=== PATIENT | female | born 1985 | race Caucasian/White ===

== ENCOUNTER 2019-02-02 19:18 | Emergency (ER) | payer OTHER, SELFPAY ==
[2019-02-02 19:52] VITALS: BP 121/75; PULSE 85; RESP 16; TEMP 37.1; O2SAT 99; BMI 30.6
--- NOTE | 2019-02-02 19:55 | DI.RAD.S_ITS ---
PROCEDURE: XR FOREARM RT 2V INDICATIONS: RIGHT ARM PAIN AND BRUISING TECHNIQUE: 2 views of the forearm were acquired. COMPARISON: None. FINDINGS: Bones: No fractures or dislocations. No suspicious bony lesions. Soft tissues: No suspicious soft tissue calcifications or masses. IMPRESSION: No trauma found. Dictated by: Riky Garcia M.D. on 02/02/2019 at 21:17 Approved by: Riky Garcia M.D. on 02/02/2019 at 21:18
--- NOTE | 2019-02-02 20:31 | ED.UPPEXIN ---
HPI - Extremity Injury (Upper) General Chief Complaint: Extremity Injury, Upper Stated Complaint: fall,injured right arm,swollen and numbness Time Seen by Provider: 02/02/19 19:30 Source: patient Mode of arrival: Ambulatory Limitations: no limitations History of Present Illness HPI narrative: 33-year-old female nonsmoker with noncontributory medical history presents with a chief complaint of mechanical fall onto an outstretched right forearm which she ran her arm into the corner of a wall. Since then she has had some swelling and pain overlying the dorsum of her forearm. She denies any wrist, elbow or shoulder pain. She is otherwise well and free of complaint. She denies any other injury. She does complain of some tingling running both proximally and distal from the injury MD complaint: injury to: right Onset (ago): day(s) Other injuries: none Handedness: right Place: home Severity: moderate Relieving factors: rest Exacerbating factors: movement of extremity Context: fall and direct blow Associated symptoms: denies other symptoms Related Data Allergies Allergy/AdvReac Type Severity Reaction Status Date / Time No Known Drug Allergies Allergy Verified 02/02/19 19:51 Review of Systems Constitutional Constitutional: Denies chills, Denies fatigue, Denies fever(s), Denies frequent falls, Denies lethargy and Denies weakness Eyes Eyes: Denies change in vision, Denies eye discharge, Denies irritation and Denies loss of vision ENT Ears, Nose, Mouth, and Throat: Denies change in voice, Denies dizziness, Denies neck pain, Denies sore throat and Denies throat swelling Cardiovascular Cardiovascular: Denies chest pain, Denies irregular heart rhythm, Denies lightheadedness, Denies palpitations, Denies dyspnea, Denies dyspnea on exertion and Denies orthopnea Respiratory Respiratory: Denies cough, Denies dyspnea, Denies dyspnea on exertion and Denies wheezing Gastrointestinal Gastrointestinal: Denies abdominal pain, Denies change in bowel habits, Denies diarrhea, Denies nausea and Denies vomiting Genitourinary Genitourinary: Denies hematuria, Denies flank pain, Denies urinary incontinence and Denies urinary urgency Musculoskeletal Musculoskeletal: Denies back pain, Denies muscle weakness, Denies neck pain, Reports numbness and Denies tingling Integumentary/Breasts Skin/Breast: Denies pruritus, Denies erythema, Denies rash and Denies wounds Neurologic Neurologic: Denies behavioral changes, Denies confusion, Denies dizziness, Denies frequent falls, Denies loss of vision, Reports numbness, Denies tingling and Denies weakness Psychiatric Psychiatric: Denies anxiety, Denies behavioral changes, Denies confusion, Denies depression, Denies homicidal ideation and Denies suicidal ideation Endocrine Endocrine: Denies fatigue, Denies flushing and Denies palpitations Hematologic/Lymphatic Hematologic/Lymphatic: Denies easy bruising Allergic/Immunologic Allergic/Immunologic: Denies urticaria, Denies throat swelling and Denies wheezing Patient History Social History Smoking Status: Current some day smoker alcohol intake frequency: a few times a month Substance Use Type: marijuana Exam Narrative Exam Narrative: GEN: AOx3 and in mild distress EYES: Pupils are equal, round, and reactive to light and accommodation. Extraoccular muscles are intact bilaterally. There is no subconjunctival hemorrhage or exudate. CHEST: Lungs are clear to auscultation bilaterally and free of wheezes, rales, or rhonchi. Heart rate is regular rhythm, there are no murmurs, clicks, rubs, or gallops. There is no chest wall tenderness. ABD: Abdomen is soft and nontender. There is no guarding or rebound. Bowel sounds are normal in all 4 quadrants. There is no mass or organomegaly. EXT: 3 x 2 cm aging hematoma on the dorsal surface of right forearm midshaft. Full range of motion and strength of fingers, wrist and elbow. SKIN: Warm, pink, and dry. No erythema or rash Initial Vital Signs Initial Vital Signs: Vital Signs Temperature 98.7 F 02/02/19 19:52 Pulse Rate 85 02/02/19 19:52 Respiratory Rate 16 02/02/19 19:52 Blood Pressure 121/75 02/02/19 19:52 Pulse Oximetry 99 02/02/19 19:52 Procedures Orthopedic Splinting/Casting Injury #1: Side: right Upper Extremity Injury Location: forearm Upper Extremity Immobilizer: sling/shoulder immobilizer Post splinting neuro exam: intact Post splinting vascular exam: intact Placed by: Nursing Course Orders Ordered: ED Orders 02/02/19 19:55 XR forearm RT 2V Stat Vital Signs Vital signs: Vital Signs - 8 hr 02/02/19 21:32 Pulse Rate 81 Respiratory Rate 15 Blood Pressure 108/76 Pulse Oximetry 97 Discharge Plan Departure Patient Disposition: Home Clinical Impression: Contusion of forearm, right Qualifiers: Encounter type: initial encounter Qualified Code(s): S50.11XA - Contusion of right forearm, initial encounter Discharge Date/Time: 02/02/19 21:33 Instructions: DI for Contusion Activity Restrictions/Additional Instructions: *You have been diagnosed with [contusion right forearm] *What to do: *Take medications as directed: Tylenol or Motrin for pain *Follow up with your primary care provider in 2-3 days, call for an appointment. Let them know you were seen in the Emergency Department and that we ask that you be seen in follow up *Return to ER if you should have any new, worsening or concerning symptoms
[2019-02-02 21:32] VITALS: BP 108/76; PULSE 81; RESP 15; O2SAT 97
== END 2019-02-02 21:33 | disposition home or self-care (01) ==
PROVIDERS: Emergency Provider Emergency Medicine
DX: S50.11XA Contusion of right forearm, initial encounter (principal); W18.39XA Other fall on same level, initial encounter
CPT/HCPCS: 73090; 99282; 99283

== ENCOUNTER → 2020-02-06 12:13 | Outpatient (CLI) | payer OTHER, SELFPAY ==
--- NOTE | 2020-02-06 | DI.MRI.S_ITS ---
PROCEDURE: MR LUMBAR SPINE WO CON INDICATIONS: SPINAL STENOSIS TECHNIQUE: Noncontrast sagittal T1 spin echo and T2 fast echo, sagittal STIR, axial T1 and T2 fast spin echo through the lumbar spine. In cases with scoliosis, additional coronal T2 fast spin echo may be performed. COMPARISON: None. FINDINGS: Image quality: Excellent. Alignment and Curvature: Normal lumbar vertebral body height and alignment. Bone Marrow: There is periarticular bone marrow edema and soft tissue edema in association with facet osteoarthropathy at L4-L5 and L5-S1, right greater than left. No other suspicious focal marrow signal abnormality or bone marrow edema. Spinal Cord: Normal position and appearance of the conus. Regional Soft Tissues: No prevertebral or paraspinous soft tissue signal abnormality. The included unenhanced retroperitoneal visceral structures, partially visualized, demonstrate no acute abnormality. L1-L2: No significant degenerative changes, spinal canal stenosis, neural foraminal stenosis. L2-L3: No significant degenerative changes, spinal canal stenosis, or neural foraminal stenosis. L3-L4: Mild disc desiccation and height loss. Trace disc bulge minimally flattens the ventral thecal sac. No mass effect upon the traversing L4 nerve roots. Foraminal components of the disc bulge are present without neural foraminal stenosis. Mild facet hypertrophy. L4-L5: Disc desiccation and disc height loss with diffuse disc bulge and a superimposed broad-based posterior disc protrusion. Disc material flattens and indents the ventral thecal sac. There is displacement of the descending L5 nerve roots within both subarticular zones, right greater than left. The right L5 nerve roots are interposed between disc and facet material within the right subarticular zone (series 5, image 21). Foraminal components of the disc bulge combine with facet hypertrophy to produce mild-moderate bilateral neural foraminal stenosis. L5-S1: Trace disc bulge. Disc material abuts but does not obviously displace the descending S1 nerve roots. No neural foraminal stenosis. IMPRESSION: Possible impingement of the right L5 nerve roots within the right subarticular zone due to combination of disc bulge with protrusion and facet hypertrophy at L4-L5. Facet osteoarthropathy at L3-L4, L4-L5, and L5-S1 with associated periarticular marrow and soft tissue edema. This is a potential source of nonradicular axial back pain. Dictated by: Kyle Anguiano M.D. on 02/06/2020 at 13:25 Approved by: Kyle Anguiano M.D. on 02/06/2020 at 13:39
== END ==
PROVIDERS: PCP Student in an Organized Health Care Education/Training Program; Referring Provider Student in an Organized Health Care Education/Training Program; Visit Provider Physical Medicine & Rehabilitation Pain Medicine
DX: M48.061 Spinal stenosis, lumbar region without neurogenic claudication (principal); M51.26 Other intervertebral disc displacement, lumbar region; M47.816 Spondylosis without myelopathy or radiculopathy, lumbar region; M47.817 Spondylosis without myelopathy or radiculopathy, lumbosacral region
CPT/HCPCS: 72148

== ENCOUNTER 2024-05-22 21:17 | Emergency (ER) | payer OTHER, SELFPAY ==
[2024-05-22] VITALS (10 sets, daily range): BP systolic 100–124; BP diastolic 61–84; PULSE 70–85; RESP 14–23; TEMP 36.9; O2SAT 95–100; BMI 29.0
--- NOTE | 2024-05-22 21:23 | EKG_ITS ---
[facility] [address], [place] [address] Test Date: 2024-05-22 Pat Name: Ling Petty Department: [facility] Room: Gender: Female Facing Grinder: : 1985 Requested By: Order Number: [id number] Reading MD: Glen Lynn MD Measurements Intervals [place] Rate: 77 P: 25 GA: 146 QRS: 6 QRSD: 110 T: 26 QT: 378 QTc: 427 Interpretive Statements Normal sinus rhythm Electronically Signed On 05-23-2024 7:49:33 PDT by Glen Lynn MD
--- NOTE | 2024-05-22 21:32 | ED_ITS ---
HPI - Overdose General Chief Complaint: Toxicology Problem Stated Complaint: OD Time Seen by Provider: 05/22/24 21:23 History of Present Illness HPI Narrative: 39-year-old female with a past medical history of hypertension presents to the emergency department with EMS for evaluation of accidental propranolol ingestion. State this is happened at 8:15 a.m., states she accidentally took the bottle that contained a proximally 20 pills of 20 mg of propranolol without intent to kill herself. She states that she normally takes propranolol for her anxiety/depression, she states that she was driving was reaching in her backpack to take her nightly medications but actually they drank all of her propranolol medication. At time of evaluation patient not complaining of any symptoms. Denies suicidal or homicidal ideations. Related Data Allergies Allergy/AdvReac Type Severity Reaction Status Date / Time No Known Drug Allergies Allergy Verified 02/02/19 19:51 Review of Systems Review of Systems Narrative: General: Positive accidental beta-agata ingestion for dose Denies fever, chills, weight loss HEENT: Denies headache, eye drainage, eye irritation, head trauma, sore throat, voice change Cardiovascular: Denies any chest pain, palpitations, tachycardia Respiratory: Denies any shortness of breath, cough, wheeze, stridor GI/: Denies any abdominal pain, nausea, vomiting, diarrhea, bright red blood per rectum, melanotic stools, urinary frequency, urinary retention, dysuria, hematuria MSK: Denies any joint pain, muscle pains, swelling Skin: Denies any rashes, lesions, discoloration Neuro: Denies any headache, lightheadedness, dizziness, fainting, weakness Psych: Denies SI/HI Patient History Social History Smoking Status: Current some day smoker Smoking Status: Current some day smoker alcohol intake frequency: a few times a month Exam Narrative Exam Narrative: General: Cooperative, comfortable, well-developed, not in acute distress HEENT: Normocephalic, atraumatic, PERRLA, normal sclera, eyelids normal, Neck: Active full range of motion, atraumatic Chest: Normal to inspection, negative crepitus, no overlying erythema ecchymosis Respiratory: Normal respiratory effort, not in acute respiratory distress, clear to auscultation bilaterally negative cough, wheeze, tachypnea, rhonchi, rales Cardiology: Regular rate rhythm negative gallop, murmur, rubs GI/: Normal to inspection, soft, nonrigid, no tenderness to palpation, exam deferred MSK: Full range of active range of motion of all 4 extremities, atraumatic Skin: No rashes lesions noted Neuro: Alert awake oriented x3, moves all 4 extremities spontaneously, cranial nerves intact, able to answer all questions appropriately follows commands appropriately Psych: Cooperative, negative suicidal or homicidal ideations Initial Vital Signs Initial Vital Signs: Vital Signs Temperature 98.4 F 05/22/24 21:20 Pulse Rate 76 05/22/24 21:20 Respiratory Rate 16 05/22/24 21:20 Blood Pressure 124/84 05/22/24 21:20 Pulse Oximetry 97 05/22/24 21:20 Oxygen Delivery Method Room Air 05/22/24 21:20 Course Orders Ordered: ED Orders 05/22/24 21:23 Acetaminophen Stat CMP [Comprehensive Metabolic Panel] Stat Ethanol (ETOH) Stat HCG Quantitative /Beta subunit Stat Lipase Stat MAG [Magnesium] Stat Salicylate Stat EKG-12 Lead Stat 05/22/24 23:15 Urine Drug Screen, Rapid Stat 05/23/24 01:28 EKG-12 Lead Stat 05/23/24 04:55 EKG-12 Lead Stat Discontinued Medications Acetaminophen (Acetaminophen 325 Mg Tablet) 650 mg PO NOW ONE Stop: 05/23/24 02:47 Last Admin: 05/23/24 02:56 Dose: 650 mg Documented By: TAMMY Sodium Chloride (Normal Saline 0.9%) 1,000 mls @ 1,000 mls/hr IV BOLUS ONE Stop: 05/22/24 22:58 Last Infusion: 05/22/24 23:17 Dose: Infused Documented By: Admin: 05/22/24 22:06 Dose: 1,000 mls/hr Documented By: KRISHNA Ondansetron HCl (Ondansetron 4 Mg/2 Ml Inj) 4 mg IV NOW ONE Stop: 05/22/24 21:31 Last Admin: 05/22/24 21:36 Dose: 4 mg Documented By: TAMMY Vital Signs Vital signs: Vital Signs - 8 hr 05/22/24 21:20 05/22/24 21:20 05/22/24 21:30 Temperature 98.4 F Pulse Rate 76 80 85 Respiratory Rate 16 22 Blood Pressure 124/84 Pulse Oximetry 97 98 100 Oxygen Delivery Method Room Air 05/22/24 21:30 05/22/24 22:00 05/22/24 22:00 Temperature Pulse Rate 72 Respiratory Rate 18 Blood Pressure 117/69 101/69 Pulse Oximetry 99 Oxygen Delivery Method 05/22/24 22:30 05/22/24 22:30 05/22/24 22:40 Temperature Pulse Rate 70 72 Respiratory Rate 20 Blood Pressure 100/67 Pulse Oximetry 96 99 Oxygen Delivery Method Room Air 05/22/24 22:40 05/22/24 23:00 05/22/24 23:00 Temperature Pulse Rate 70 Respiratory Rate 23 Blood Pressure 107/69 100/64 Pulse Oximetry 99 Oxygen Delivery Method 05/22/24 23:15 05/22/24 23:15 05/22/24 23:20 Temperature Pulse Rate 80 73 Respiratory Rate 14 15 Blood Pressure 106/61 Pulse Oximetry 97 96 Oxygen Delivery Method 05/22/24 23:20 05/22/24 23:30 05/22/24 23:40 Temperature Pulse Rate 74 74 Respiratory Rate 18 19 Blood Pressure 107/73 Pulse Oximetry 95 97 Oxygen Delivery Method Room Air Room Air 05/22/24 23:40 05/23/24 00:00 05/23/24 00:00 Temperature Pulse Rate 74 Respiratory Rate 22 Blood Pressure 103/69 103/66 Pulse Oximetry 97 Oxygen Delivery Method Room Air 05/23/24 00:07 05/23/24 00:07 05/23/24 00:20 Temperature Pulse Rate 74 73 Respiratory Rate 17 15 Blood Pressure 114/64 Pulse Oximetry 98 97 Oxygen Delivery Method 05/23/24 00:20 05/23/24 00:30 05/23/24 00:40 Temperature Pulse Rate 74 77 Respiratory Rate 15 19 Blood Pressure 107/68 Pulse Oximetry 97 97 Oxygen Delivery Method 05/23/24 00:40 05/23/24 01:00 05/23/24 01:00 Temperature Pulse Rate 73 Respiratory Rate 16 Blood Pressure 108/68 105/65 Pulse Oximetry 97 Oxygen Delivery Method 05/23/24 01:19 05/23/24 01:19 05/23/24 01:30 Temperature Pulse Rate 78 74 Respiratory Rate 17 14 Blood Pressure 107/67 Pulse Oximetry 96 97 Oxygen Delivery Method Room Air 05/23/24 02:00 05/23/24 02:30 05/23/24 02:44 Temperature Pulse Rate 75 73 77 Respiratory Rate 17 17 17 Blood Pressure Pulse Oximetry 97 97 97 Oxygen Delivery Method Room Air 05/23/24 02:44 05/23/24 03:00 05/23/24 03:00 Temperature Pulse Rate 78 Respiratory Rate 20 Blood Pressure 108/68 106/74 Pulse Oximetry 96 Oxygen Delivery Method Room Air 05/23/24 03:20 05/23/24 03:20 05/23/24 03:40 Temperature Pulse Rate 73 81 Respiratory Rate 15 22 Blood Pressure 103/63 Pulse Oximetry 98 97 Oxygen Delivery Method 05/23/24 03:40 05/23/24 04:00 05/23/24 04:00 Temperature Pulse Rate 79 Respiratory Rate 20 Blood Pressure 107/66 105/64 Pulse Oximetry 98 Oxygen Delivery Method 05/23/24 04:20 05/23/24 04:20 05/23/24 04:30 Temperature Pulse Rate 71 74 Respiratory Rate 16 17 Blood Pressure 101/61 Pulse Oximetry 99 98 Oxygen Delivery Method MDM - Overdose Differential Diagnosis Differential diagnosis: Likely drug overdose, accidental drug ingestion and other (Electrolyte abnormality,) Lab Data 05/22/24 21:23 Labs: Lab Results 05/22/24 05/22/24 Range/Units 21:23 23:15 Sodium 140 (137-145) mmol/L Potassium 3.8 (3.4-5.1) mmol/L Chloride 110 H (98-107) mmol/L Carbon Dioxide 18 L (22-32) mmol/L BUN 17 (7-17) mg/dL Creatinine 0.81 (0.52-1.04) mg/dL Estimated GFR > 60 (>60) mL/min BUN/Creatinine Ratio 21.0 (6-22) Glucose 108 H (70-100) mg/dL Calcium 9.4 (8.4-10.2) mg/dL Magnesium 1.7 (1.6-2.3) mg/dL Total Bilirubin 0.3 (0.2-1.3) mg/dL AST 23 (14-36) IU/L ALT 22 (<35) IU/L Alkaline Phosphatase 46 (38-126) U/L Total Protein 7.2 (6.3-8.2) g/dL Albumin 4.5 (3.5-5.0) g/dL Globulin 2.7 (1.7-4.1) g/dL Albumin/Globulin Ratio 1.7 (1.0-2.8) Lipase 98 (23-300) U/L HCG, Quant < 2.39 mIU/mL Salicylates < 1.0 (<20) mg/dL U Opiates 300ng/mL cut Negative (Negative) Ur Oxycodone Screen Negative (Negative) Urine Methadone Screen Negative (Negative) Acetaminophen < 10 (10-30) ug/mL Ur Barbiturates Screen Negative (Negative) U Tricyclic Antidepress Positive H (Negative) Ur Phencyclidine Scrn Negative (Negative) Ur Amphetamines Screen Negative (Negative) U Methamphetamines Scrn Negative (Negative) Ur MDMA Scrn (Ecstasy) Negative (Negative) U Benzodiazepines Scrn Negative (Negative) Urine Cocaine Screen Negative (Negative) U Marijuana (THC) Screen Negative (Negative) Urine pH Normal (Normal) Urine Specific [place] Normal (Normal) Ethyl Alcohol < 10 ( - 10) mg/dL Ur Creatinine Normal (Normal) Point of Care Testing Glucose POC 110 ECG Data Interpretation: EKG interpreted ED physician sinus 77 beats per minute QTC 427, QRS 110, normal axis nonspecific ST changes no STEMI Repeat EKG interpreted by ED physician sinuses 70 beats per minute incomplete right bundle-branch block noted, QTC 447 QRS 114 Repeat EKG interpreted ED physician sinus 71 beats per minute normal axis QTC [address] changes QRS 110 MDM Narrative Medical decision making narrative: 39-year-old female with a past medical history of anxiety depression comes into the ED via EMS for evaluation of accidental ingestion of propranolol. She states he is taking propranolol for anxiety depression, she states that she was driving was reaching back in her bag to take her normal nighttime medication and actually drank/took her bottle or propranolol. She states that there was a proximally 20 tablets which were 20 mg this was a proximally 30 minutes prior to arrival. At time of evaluation patient is well-appearing nontoxic tearful but states that this was not due to SI or HI she states that she has no thoughts of hurting herself. She is not complaining of any symptoms such as headache visual disturbances chest pain shortness breath fever chills nausea vomiting abdominal pain or any other GI/ symptoms time. Lab work unremarkable. 2135: Did have a discussion with poison control, they state that patient should at least be observed for 8 hours in the emergency department, is recommending to watch out for prolonged QRS, states that if it is greater than 110 would recommend a bicarb bolus of 1-2 mix per kg, states to watch for hypoglycemia hypotension, requesting repeat EKG in 4 hours. 0130: Patient re-evaluated noted cholecystitis time, patient has remained completely asymptomatic at this time. We will obtain repeat EKG to evaluate for QRS prolongation and possible need for sodium bicarb. 0145: Repeat EKG showing sinus at 70 QRS at 114 not a significant change from previous of 110 patient is still asymptomatic we will hold off on bicarb bolus at this time 0512: Patient re-evaluated patient well-appearing nontoxic blood glucose has remained normal throughout her entire observation. Here in the emergency department, final EKG with normal QRS of 110 patient has not had any episodes of bradycardia no episodes of hypotension she was instructed to follow up with her primary care doctor strict return precautions given she verbalized understanding of this and agrees to being discharged home with outpatient follow up Naloxone at Discharge Meets criteria for naloxone at discharge?: No Discharge Plan Departure Patient Disposition: Home Clinical Impression: Accidental drug ingestion Qualifiers: Encounter type: initial encounter Qualified Code(s): T50.901A - Poisoning by unspecified drugs, medicaments and biological substances, accidental (unintentional), initial encounter Activity Restrictions/Additional Instructions: Please follow up with the primary care doctor Please read the discharge instructions sheet carefully and bring all papers to all doctor follow-up visits, as it may contain information that your doctor may want to see. Disease processes change and evolve, if your symptoms worsen or if you develop any new symptoms that are concerning to you please return for evaluation. Your evaluation today does not show any evidence of any life- threatening/serious illnesses requiring admission to the hospital or surgery. Please follow-up with your doctor for re-evaluation in approximately 1 day. Seek immediate medical attention for any worrisome symptoms. *If you do not have a primary care provider please contact the [facility] Resource line at [phone]. They will ask some questions about your medical history and help get you set up with a doctor in the community. Referrals: Pablo Santos DO [Primary Care Provider] - Stand Alone Forms: Patient Portal/API/Survey
[2024-05-22] MEDS: ONDANSETRON 4 MG/2 ML INJ IV (21:36)
--- NOTE | 2024-05-22 21:41 | PC.NURSE ---
Called poison control, recommendation include monitoring bp and hr. The dose of ingested propranolol is a toxic dose and is at risk for hypotension, bradycardia, drowsiness, hypoglycemia and av block. treatments including iv fluids for hypotension followed by pressures and/or atropine benzos to treat seizures. questionable to use activated charcoal for due to the drowsiness and risk for aspiration. check ekg q4hrs watch qrs interval. if gets great than 110 treat with 1-2meq sodium bicarb bolus and watch for at least 8 hrs. Provider aware of recommendations.
[2024-05-22 21:50] LABS: Alanine Aminotransferase 22 IU/L (<35); Albumin 4.5 g/dL (3.5-5.0); Albumin Globulin Ratio 1.7 (1.0-2.8); Alkaline Phosphatase 46 U/L (38-126); Aspartate Aminotransferase 23 IU/L (14-36); Bilirubin Total 0.3 mg/dL (0.2-1.3); Blood Urea Nitrogen 17 mg/dL (7-17); Calcium 9.4 mg/dL (8.4-10.2); Carbon Dioxide 18 mmol/L (22-32); Chloride 110 mmol/L (98-107); Estimated Glomerular Filt Rate > 60 mL/min (>60); Globulin 2.7 g/dL (1.7-4.1); Glucose 108 mg/dL (70-100); HEMOLYSIS < 15 (0-50); Lipase 98 U/L (23-300); Magnesium 1.7 mg/dL (1.6-2.3); Potassium 3.8 mmol/L (3.4-5.1); Sodium 140 mmol/L (137-145); Total Protein 7.2 g/dL (6.3-8.2)
[2024-05-22] MEDS: SODIUM CHLORIDE 0.9% 1,000 ML 1000 ML IV (22:06)
[2024-05-22 22:07] LABS: HCG Quantitative /Beta subunit < 2.39 mIU/mL
[2024-05-22 22:11] LABS: Acetaminophen < 10 ug/mL (10-30); Ethanol (ETOH) < 10 mg/dL; Salicylate < 1.0 mg/dL (<20)
[2024-05-22 23:34] LABS: UR Morphine/Opiate cutoff 300 Negative (Negative); Ur Creatinine Normal (Normal); Ur Specific Gravity Normal (Normal); Urine Amphetamines Negative (Negative); Urine Barbiturates Negative (Negative); Urine Benzodiazepines Negative (Negative); Urine Cocaine Negative (Negative); Urine MDMA Negative (Negative); Urine Methadone Negative (Negative); Urine Methamphetamines Negative (Negative); Urine Oxycodone Negative (Negative); Urine Phencyclidine Negative (Negative); Urine Tetrahydrocannabinol Negative (Negative); Urine Tricyclic Antidepressant Positive (Negative); Urine pH Normal (Normal)
[2024-05-23] VITALS (20 sets, daily range): BP systolic 99–114; BP diastolic 61–74; PULSE 71–81; RESP 14–22; O2SAT 96–99
--- NOTE | 2024-05-23 00:09 | PC.NURSE ---
This nurse helped pt up to bedside commode. Pt very unsteady on her feet.
--- NOTE | 2024-05-23 01:42 | EKG_ITS ---
[facility] [address], [place] [address] Test Date: 2024-05-23 Pat Name: Ling Petty Department: [facility] Room: Gender: Female Care Program Resident: AMBREEN : 1985 Requested By: Order Number: [id number] Reading MD: Glen Lynn MD Measurements Intervals [place] Rate: 70 P: 11 CA: 156 QRS: 5 QRSD: 114 T: 10 QT: 414 QTc: 447 Interpretive Statements Normal sinus rhythm Incomplete right bundle branch block NO SIGNIFICANT CHANGE FROM PRIOR TRACING Electronically Signed On 05-23-2024 7:49:54 PDT by Glen Lynn MD
[2024-05-23] MEDS: ACETAMINOPHEN 325 MG TABLET 650 MG PO (02:56)
--- NOTE | 2024-05-23 05:08 | EKG_ITS ---
[facility] [address] [place] [address] Test Date: 2024-05-23 Pat Name: Ling Petty Department: [facility] Room: Gender: Female [employer] Manager: TAMMY : 1985 Requested By: Order Number: [id number] Reading MD: Glen Lynn MD Measurements Intervals [place] Rate: 71 P: 24 ME: 144 QRS: -3 QRSD: 110 T: -2 QT: 410 QTc: 445 Interpretive Statements Normal sinus rhythm Minimal voltage criteria for LVH, may be normal variant ( R in aVL ) Electronically Signed On 05-23-2024 7:50:03 PDT by Glen Lynn MD
== END 2024-05-23 05:25 | disposition home or self-care (01) ==
PROVIDERS: Emergency Provider Student in an Organized Health Care Education/Training Program; PCP Student in an Organized Health Care Education/Training Program
DX: T50.901A Poisoning by unspecified drugs, medicaments and biological substances, accidental (unintentional), initial encounter (principal); I45.10 Unspecified right bundle-branch block
CPT/HCPCS: 36415; 80053; 80305; 80320; 80329; 82962; 83690; 83735; 84702; 93005; 93010; 99284; G0480; J2405